=== PATIENT | female | born 1950 | race Caucasian/White ===

== ENCOUNTER → 2018-03-30 | Outpatient (CLI) | payer MEDICARE ==
[~2018-03-30] MED LIST: CALC1CAP8 PO; CHOL200024 PO; CLOB15CR19 VG; DOCU240C53 PO; ESTRADIOL; GLUC1TAB55 PO; IBUP-1484 PO; MELO15TA24 PO; OCCUVITE PO; PANT40TA5 PO; PRAV40TA2 PO; RAMI10CA59 PO
[2018-03-30 14:54] LABS: INTERNATIONAL NORMALIZED RATIO 0.94 (0.93-1.1); PROTHROMBIN TIME 9.8 Seconds (9.6-11.5)
[2018-03-30 14:56] LABS: BASOPHILS # (AUTO) 0.05 x10^3/uL (0-0.1); BASOPHILS % (AUTO) 1 % (0-1); EOSINOPHILS # (AUTO) 0.17 x10^3/uL (0-0.4); EOSINOPHILS % (AUTO) 2 % (1-7); LYMPHOCYTES # (AUTO) 1.39 x10^3/uL (1-3.4); LYMPHOCYTES % (AUTO) 19 % (22-44); MD NO; MEAN CORPUSCULAR HEMOGLOBIN 33.7 pg (27.0-34.8); MEAN CORPUSCULAR HGB CONC 33.7 g/dL (32.4-35.8); MEAN PLATELET VOLUME 8.8 fL (7.4-10.4); MONOCYTES # (AUTO) 0.75 x10^3/uL (0.2-0.8); MONOCYTES % (AUTO) 10 % (2-9); NEUTROPHILS # (AUTO) 5.08 x10^3/uL (1.8-6.8); NEUTROPHILS % (AUTO) 68 % (42-75); PLATELET COUNT 225 x10^3/uL (130-400); RED BLOOD COUNT 4.15 x10^6/uL (3.82-5.3); RED CELL DISTRIBUTION WIDTH 13.7 % (9.6-15.2)
[2018-03-30 15:16] LABS: CHLORIDE 103 mmol/L (98-107)
[2018-03-30 15:18] LABS: MICROSCOPIC NOT IND
[2018-03-30 15:24] LABS: HEMOGLOBIN A1C 5.4 % (4.2-6.3)
[2018-03-30 15:28] LABS: ALANINE AMINOTRANSFERASE 26 U/L (12-78); ALBUMIN 3.5 g/dL (3.4-5.0); ALKALINE PHOSPHATASE 106 U/L (45-117); ANION GAP 10 mmol/L (5-15); BILIRUBIN,TOTAL 0.3 mg/dL (0.2-1.0); CALCIUM 8.7 mg/dL (8.5-10.1); CREATININE 0.89 mg/dL (0.55-1.02); TOTAL PROTEIN 7.2 g/dL (6.4-8.2)
[2018-03-30 17:25] LABS: CULTURE INDICATED? NO
== END | disposition home or self-care (01) ==
LOC: STAR 13:38
PROVIDERS: ATTEND Orthopaedic Surgery
DX: Z01.818 Encounter for other preprocedural examination (principal); M25.562 Pain in left knee; M17.12 Unilateral primary osteoarthritis, left knee
CPT/HCPCS: 36415; 80053; 81003; 83036; 85025; 85610; 85730; 87081; 87806; 93005; G0475

== ENCOUNTER 2018-04-04 10:12 | Observation (INO) | payer MEDICARE ==
[~2018-04-04] VITALS: Ht 179.1 cm; Wt 81.0 kg
[~2018-04-04 10:12] MED LIST changes: -DOCU240C53 PO; +EPINEPHRINE 1 MG/ML, 1ML ONE; -IBUP-1484 PO; +KETOROLAC 60 MG/2 ML ONE; +ROPIvacaine/PF 0.2%, 20 ML ONE; +TRANEXAMIC ACID 100 MG/ML, 10ML ONE
[2018-04-04] MEDS ORDERED: IBUP-1484 PO (10:47)
[2018-04-04] MEDS ORDERED: DOCU240C53 PO (10:47)
[2018-04-04] MEDS ORDERED: LACTATED RINGERS 1,000 ML IV SCH (10:47)
[2018-04-04] MEDS ORDERED: ACETAMINOPHEN 500 MG TABLET PO ONE (11:00)
[2018-04-04] MEDS ORDERED: GABAPENTIN 300 MG CAPSULE PO ONE (11:00)
[2018-04-04] MEDS ORDERED: MIDAZOLAM 1 MG/ML, 2ML ONE (11:03)
[2018-04-04] MEDS ORDERED: FENTANYL PF 250 MCG/5ML ONE (11:03)
[2018-04-04] MEDS ORDERED: GLYCOPYRROLATE 0.2MG/1ML, 5ML ONE (11:07)
[2018-04-04] MEDS ORDERED: DEXAMETHASONE 4 MG/ML, 1ML ONE (11:07)
[2018-04-04] MEDS ORDERED: CEFAZOLIN 1,000 MG ONE (11:07)
[2018-04-04] MEDS ORDERED: SUCCINYLCHOLINE 20 MG/ML, 10ML ONE (11:07)
[2018-04-04] MEDS ORDERED: PROPOFOL 10 MG/ML, 20ML ONE (11:07)
[2018-04-04] MEDS ORDERED: BUPIVACAINE/PF 0.5% ONE (11:07)
[2018-04-04] MEDS ORDERED: ROCURONIUM 10MG/ML,5ML ONE (11:07)
[2018-04-04] MEDS ORDERED: NEOSTIGMINE 1 MG/ML, 10ML ONE (11:07)
[2018-04-04] MEDS ORDERED: ONDANSETRON 2MG/ML, 2ML ONE (11:07)
[2018-04-04] MEDS ORDERED: EPINEPHRINE 1 MG/ML, 1ML ONE (11:07)
[2018-04-04] MEDS ORDERED: hydrALAzine 20 MG/ML, 1ML ONE ×2 (11:24→13:32)
[2018-04-04] MEDS ORDERED: ACETAMINOPHEN 650 MG/20.3 ML UDC PO PRN (13:00)
[2018-04-04] MEDS ORDERED: SENNA/DOCUSATE TABLET PO PRN (13:00)
[2018-04-04] MEDS ORDERED: PROMETHAZINE 25 MG/ML, 1ML IM PRN (13:00)
[2018-04-04] MEDS ORDERED: ALUMINUM/MAG/SIMETHICONE 30 ML UDC PO PRN (13:00)
[2018-04-04] MEDS ORDERED: HYDROmorphone 1 MG/ML, 1ML IV PRN ×2 (13:00→13:30)
[2018-04-04] MEDS ORDERED: MAGNESIUM HYDROXIDE 8%, 30ML UDC PO PRN (13:00)
[2018-04-04] MEDS ORDERED: ONDANSETRON 4 MG TABLET PO PRN (13:00)
[2018-04-04] MEDS ORDERED: DIPHENHYDRAMINE 25 MG CAPSULE PO PRN (13:00)
[2018-04-04] MEDS ORDERED: ONDANSETRON 2MG/ML, 2ML IV PRN ×2 (13:00→13:30)
[2018-04-04] MEDS ORDERED: PROMETHAZINE 12.5 MG SUPP PR PRN (13:00)
[2018-04-04] MEDS ORDERED: OXYcodone 5 MG/5 ML ORAL.SOL UDC PO PRN (13:30)
[2018-04-04] MEDS ORDERED: LORazepam 2 MG/ML, 1ML IVPush PRN (13:30)
[2018-04-04] MEDS ORDERED: LABETALOL 5MG/ML, 20ML IV PRN (13:30)
[2018-04-04] MEDS ORDERED: PROCHLORPERAZINE 5 MG/ML, 2ML IV PRN (13:30)
[2018-04-04] MEDS ORDERED: MORPHINE SULFATE 4 MG/ML, 1ML IVPush PRN (13:30)
[2018-04-04] MEDS ORDERED: ONDANSETRON ODT 8 MG PO PRN (13:30)
[2018-04-04] MEDS ORDERED: hydrALAzine 20 MG/ML, 1ML IV PRN (13:30)
[2018-04-04] MEDS ORDERED: OXYcodone 5 MG/5 ML ORAL.SOL UDC ONE (14:21)
[2018-04-04] MEDS ORDERED: FENTANYL PF 100 MCG/2ML ONE (14:21)
[2018-04-04] MEDS: FENTANYL PF 100 MCG/2ML IV PRN ×2 (14:23→14:35)
[2018-04-04] MEDS ORDERED: TRANEXAMIC ACID 1,000 MG in SODIUM CHLORIDE 0.9% 100 ML IVPB ONE (14:30)
[2018-04-04] MEDS: ASPIRIN 81 MG TABLET EC PO SCH (17:03)
[2018-04-04] MEDS: D5%-0.45NACL+KCL 20MEQ 1,000 ML IV SCH (17:04)
[2018-04-04 19:30] VITALS: BP 134/75
[2018-04-04] MEDS: DOCUSATE 100 MG CAPSULE PO SCH (20:45)
[2018-04-04] MEDS: CEFAZOLIN PMX 1GM/50ML 50 ML IVPB SCH (20:45)
[2018-04-04] MEDS ORDERED: RAMIPRIL 10 MG CAPSULE PO SCH (21:00)
[2018-04-04] MEDS ORDERED: PRAVASTATIN 40 MG TABLET PO SCH (21:00)
[2018-04-04] MEDS ORDERED: PANTOPROZOLE 40MG TABLET PO SCH (21:00)
[2018-04-05 00:45] VITALS: BP 91/53
[2018-04-05] MEDS: OXYcodone IR 5MG TABLET PO PRN ×3 (00:46→09:18)
[2018-04-05] MEDS: D5%-0.45NACL+KCL 20MEQ 1,000 ML IV SCH ×2 (01:40→11:40)
[2018-04-05] MEDS: CEFAZOLIN PMX 1GM/50ML 50 ML IVPB SCH (04:24)
[2018-04-05 04:47] VITALS: BP 95/61
[2018-04-05] MEDS: ASPIRIN 81 MG TABLET EC PO SCH (04:50)
[2018-04-05] MEDS ORDERED: DEXAMETHASONE 4 MG/ML, 1ML IVPush SCH (06:00)
[2018-04-05] MEDS: DOCUSATE 100 MG CAPSULE PO SCH (07:57)
[2018-04-05 08:08] VITALS: BP 123/72
[2018-04-05] MEDS ORDERED: TAMSULOSIN 0.4 MG CAP.ER.24H PO SCH (09:00)
[2018-04-05] MEDS ORDERED: ASPI-496 PO (12:02)
[2018-04-05] MEDS ORDERED: DOCU-131 PO (12:03)
[2018-04-05] MEDS ORDERED: ONDA4TAB10 PO (12:03)
[2018-04-05] MEDS ORDERED: CELE200C PO (12:04)
[2018-04-05] MEDS ORDERED: TRAM50TA2 PO (12:05)
[2018-04-05] MEDS ORDERED: OXYC5CAP2 PO (12:06)
[2018-04-05] MEDS ORDERED: KETOROLAC 30 MG/1 ML IV SCH (13:00)
== END 2018-04-05 13:00 | disposition home or self-care (01) ==
LOC: ORIP 10:12 → INTOOBSV 10:12 → 4NOR 15:30 → DCLOUNGE 04-05 12:45
PROVIDERS: ADMIT Orthopaedic Surgery; ATTEND Orthopaedic Surgery
DX: M17.0 Bilateral primary osteoarthritis of knee (principal); M21.00 Valgus deformity, not elsewhere classified, unspecified site; K21.9 Gastro-esophageal reflux disease without esophagitis; Z90.49 Acquired absence of other specified parts of digestive tract; Z90.710 Acquired absence of both cervix and uterus
CPT/HCPCS: 27447; 36415; 73560; 85014; 85018; 96365; 96366; 96375; 97116; 97150; 97161; 97165; C1713; C1776; G0378; G8978; G8979; G8980; J0171; J0330; J0360; J0690; J1100; J1885; J2250; J2405; J2704; J2710; J2795; J3010; J3480; J3490; J7120